=== PATIENT | female | born 1970 | race Caucasian/White ===

== ENCOUNTER → 2017-05-06 | Outpatient (CLI) | payer OTHER ==
[~2017-05-06] MED LIST: ALEV220C2 PO; GABA-282 PO; PLAQUENAL PO; PROZ40CA PO; YAZ1TAB PO
--- NOTE | 2017-05-06 10:42 | REPMRS ---
Patient History The patient states she has not had a clinical breast exam in over a year. Family history of prostate cancer in paternal grandfather at age 70, breast cancer in paternal aunt at age 40, endometrial cancer in maternal aunt at age 70, endometrial cancer in maternal grandmother at age 50, and breast cancer in paternal grandmother at age 98. Prior mammograms at [facility] Digital Mammo Screening Bilat: May 06, 2017 - Exam #: [id number] Bilateral CC and MLO view(s) were taken. Technologist: Mary Traore, Technologist Prior study comparison: November 20, 2014, digital bilateral screening mammo, performed at [facility]. September 25, 2013, digital bilateral screening mammo, performed at [facility]. FINDINGS: There are scattered fibroglandular densities. There has been no change in the appearance of the mammogram from the prior studies. There is a mild amount of scattered fibroglandular density which is fairly symmetric. There is no interval development of dominant mass, architectural distortion, or clustered microcalcification suggestive of malignancy. ASSESSMENT: BI-RADS/ACR category 1 mammogram. Negative. Recommendation Routine screening mammogram in 1 year (for women over age 40). This mammogram was interpreted with the aid of an FDA-approved computer-aided dectection system. Electronically Signed By: Les Mccall MD 05/06/17 [id number]
== END ==
LOC: M RAD 08:31
PROVIDERS: ATTEND Internal Medicine
DX: Z12.31 Encounter for screening mammogram for malignant neoplasm of breast (principal); Z80.3 Family history of malignant neoplasm of breast; Z80.42 Family history of malignant neoplasm of prostate; Z80.49 Family history of malignant neoplasm of other genital organs

== ENCOUNTER 2018-02-21 10:25 | Emergency (ER) | payer OTHER ==
[2018-02-21] MEDS: DERMABOND TOPICAL SKIN ADHESIVE TOP (11:45)
[2018-02-21] MEDS: ADACEL/BOOSTRIX VACCINE (DIPHTH/PERTUSS/ACELL/TETANUS)0.5ML SYR (90715) IM (11:47)
== END 2018-02-21 12:31 | disposition home or self-care (01) ==
LOC: M ED 10:25
DX: S61.411A Laceration without foreign body of right hand, initial encounter (principal); W26.8XXA Contact with other sharp object(s), not elsewhere classified, initial encounter; Y92.9 Unspecified place or not applicable; Y93.9 Activity, unspecified; Y99.0 Civilian activity done for income or pay; Z79.899 Other long term (current) drug therapy
CPT/HCPCS: 90715